=== PATIENT | female | born 1990 | race African-American/Black ===

== ENCOUNTER 2017-05-24 20:22 | Inpatient (IN) | payer BC, OTHER ==
[2017-05-24] MEDS: DEXTROSE 5%-LACTATED RINGERS 1,000 ML IV SCH ×2 (20:22→22:00)
[2017-05-24 20:48] LABS: BASOPHIL 1.2 % (0-2.0); EOSINOPHIL 0.2 % (0-4.5); MCH 32.1 pg (25.7-33.7); MCHC 34.4 g/dl (32.0-36.0); MEAN CELL VOLUME 93.5 fl (80-96); MEAN PLT VOLUME 8.7 fl (7.5-11.1); NEUTROPHILS 78.5 % (42.8-82.8); PLATELET COUNT 183 K/MM3 (134-434); RDW 13.6 % (11.6-15.6); WHITE BLOOD COUNT 8.6 K/mm3 (4.0-10.0)
[2017-05-24 20:59] VITALS: BMI 23.8
[2017-05-24 21:06] LABS: INR 0.97 (0.82-1.09); PROTHROMBIN TIME (PATIENT) 10.7 SEC (9.98-11.88)
[2017-05-24 21:14] LABS: ANION GAP 7 (8-16); BILIRUBIN,TOTAL 0.4 mg/dL (0.2-1.0); CALCIUM 8.7 mg/dL (8.5-10.1); CO2 26 mmol/L (21-32); CREATININE 0.8 mg/dL (0.55-1.02); GLUCOSE,RANDOM 122 mg/dL (74-106); SGOT/AST 28 U/L (15-37); SGPT/ALT 21 U/L (12-78); TOT PROT 6.3 g/dl (6.4-8.2)
[2017-05-24 21:15] LABS: ALK PHOS 120 U/L (45-117)
[2017-05-24 21:37] LABS: ACTIVATED PTT 26.8 SECONDS (26.9-34.4)
[2017-05-24] MEDS: OXYTOCIN 15 UNITS/ LR 250 ML 250 ML IV SCH (22:36)
--- NOTE | 2017-05-24 23:42 | HP ---
Past Medical History - Admission Chief Complaint: 30 y/o female presented to the [facility] c.o premature rupture of membtaes,dhr offers no other complaints History of Present Illness: her antipartum coutse has been unremakable,] she was tested negatively for GBS she is allergic t to penicillin History Source: Patient - Past Medical History DENTAL SERVICE CHIEF: No: Alzheimer's, CVA, Dementia, Migraine, Multiple Sclerosis, Peripheral Neuropathy, Parkinson's, Seizure, Syncope, TIA, Vertigo, Other Cardiovascular: No: AFIB, Aneurysm, Aortic Insufficiency, Aortic Stenosis, CAD, CHF, Deep Vein Thrombosis, HTN, Hyperlipdemia, TN, Mitral Insufficiency, Mitral Stenosis, Murmur, Pulmonary Hypertension, Other Pulmonary: Yes: Asthma. No: Bronchitis, Cancer, COPD, O2 Dependent, Pneumonia, Previously Intubated, Pulmonary Embolus, Pulmonary Fibrosis, Sleep Apnea, Other Gastrointestinal: No: Ascites, Cancer, Constipation, Crohn's Disease, Diverticulitis, Diverticulosis, Esophageal Varices, Gastritis, GERD, GI Bleed, Hemorrhoids, Hiatal Hernia, Inflamatory Bowel Disease, Irritable Bowel Disease, Pancreatitis, Peptic Ulcer Disease, Ulcerative Colitis, Other Hepatobiliary: Yes: Cirrhosis, Cholelithiasis, Cholecystitis, Choledocholithiasis, Hepatitis A, Hepatitis B, Hepatitis C, Other Reproductive: No: Ectopic , Endometriosis, Fibroids, PID, Polycystic Ovary Syndrome, Postmenopausal, Other ...: 3 ...Para: 1 ...Term: 1 ...: 0 ...Spon : 1 ...Induced : 0 ...Multiple Gestation: 0 ...LMP: 08/24/16 ... Weeks Gestation by Dates: 39.0 ...EDC by Dates: 05/31/17 Heme/Onc: Yes: Anemia Infectious Disease: No: AIDS, C-Diff, Herpes Zoster, HIV, MRSA, STD's, Tuberculosis, VREF, Other Psych: No: Addictions, Anxiety, Bipolar, Depression, Panic, Psychosis, Schizophrenia, Other Musculoskeletal: No: Bursitis, Chronic low back pain, Hemiparesis, Hemiplegia, Osteoarthritis, Paraplegia, Other Rheumatology: No: Fibromyalgia, Gout, Lupus, Rheumatoid Arthritis, Sarcoidosis, Vasculitis, Other ENT: No: Allergic Rhinitis, Sinusitis, Other Endocrine: Yes: Diabetes Mellitus. No: Mather's Disease, Leighton's Disease, Diabetes Insipidus, Hyperparathyroidism, Hyperthyroidism, Hypothyroidism, Osteopenia, SIADH, Other Dermatology: No: Basal Cell, Cellulitis, Eczema, Melanoma, Psoriasis, Squamous Cell, Other - Past Surgical History Past Surgical History: Yes: None Hx Myomectomy: No Hx Transabdominal Cerclage: No - Smoking History Smoking history: Never smoked Have you smoked in the past 12 months: No - Alcohol/Substance Use Hx Alcohol Use: No History of Substance Use: reports: None Home Medications - Allergies Allergies/Adverse Reactions: Allergies Allergy/AdvReac Type Severity Reaction Status Date / Time Penicillins Allergy Severe Hives Verified 05/24/17 20:26 - Home Medications Home Medications: Ambulatory Orders Vit/Iron Fumarate/FA [ Tablet] 1 tablet PO DAILY 05/24/17 Family Disease History - Family Disease History Family History: Unremarkable Physical Exam - Maternity Vital Signs: Vital Signs Temperature 99.2 F 05/24/17 23:00 Pulse Rate 84 05/24/17 23:00 Respiratory Rate 18 05/24/17 23:00 Blood Pressure 120/70 05/24/17 23:00 O2 Sat by Pulse Oximetry (%) Eyes: Yes: WNL Cardiovascular: Yes: WNL Breast(s): Yes: WNL - Abdominal Exam/OB Fundal Height: 39 Accelerations: None - Vaginal Exam/OB Vaginal Bleediing: No Speculum Exam: Yes Dilatation (cm): 2 Amniotic Fluid: Yes: Clear Meconium: Moderate Presentation: Vertex/Position Station: -1 - Physical Exam Musculoskeletal: Yes: WNL Extremities: Yes: WNL, Delayed Capillary Refill Edema: No Integumentary: Yes: WNL Deep Tendon Reflex Grade: Normal +2 ...Motor Strength: WNL Psychiatric: Yes: Oriented - Labs Lab Results: CBC, BMP 05/24/17 20:35 05/24/17 20:35 Assessment/Plan iup ay yerm with ptrmayure ruptur of membranes amiyto labor and delivery pain managrmrnt as requested by the patient continuos maternal monitoring
[2017-05-25] MEDS ORDERED: PROMETHAZINE HCL 25 MG/1 ML VIAL IVPUSH ONE (01:35)
[2017-05-25] MEDS ORDERED: BUTORPHANOL TARTRATE 1 MG/ML VIAL IVPUSH ONE (01:35)
[2017-05-25] MEDS ORDERED: CITRIC ACID/SODIUM CITRATE 30 ML UNIT-DOSE CUP PO ONE (04:55)
[2017-05-25] MEDS: ELECTROLYTE-148 SOLN 500 ML IV ONE ×2 (05:00→10:37)
[2017-05-25] MEDS ORDERED: ELECTROLYTE-148 SOLN 1,000 ML IV SCH (05:25)
--- NOTE | 2017-05-25 05:29 | PN ---
Progress Note, Labor Vaginal Exam #2 Labor Exam Date: 05/25/17 Labor Exam Time: 03:00 Heart Rate (range): 140-135 bpm with variables Dilatation: fully Effacement (%): 100% Amniotic Membrane Status: Ruptured Presentation: Face Station: +1
[2017-05-25] MEDS ORDERED: METHYLERGONOVINE MALEATE 0.2 MG/1 ML AMP IM PRN (07:13)
[2017-05-25] MEDS ORDERED: ONDANSETRON 4 MG/2 ML VIAL IVPB PRN (07:20)
[2017-05-25] MEDS ORDERED: IBUPROFEN 600 MG TABLET (FP) PO PRN (07:20)
[2017-05-25] MEDS: OXYTOCIN 20 UNITS in 0.9% NS 1,000 ML IV SCH ×2 (07:45→16:00)
[2017-05-25] MEDS ORDERED: IBUPROFEN 800 MG/8 ML IJ IVPB PRN (08:23)
--- NOTE | 2017-05-25 13:50 | PN ---
Progress Note (short form) - Note Progress Note: POD #1 - s/p under spinal anesthesia with duramorph. Pt. doing well, sitting up comfortably in bed. No complaints. Good pain control. No apparent anesthetic complications noted. Continue current care.
[2017-05-25] MEDS: IBUPROFEN 600 MG TABLET (FP) PO PRN ×2 (17:26→21:41)
[2017-05-25] MEDS: SIMETHICONE 80 MG TAB.CHEW (FP) PO PRN ×2 (17:28→21:40)
[2017-05-25] MEDS: ACETAMINOPHEN 325 MG TABLET (FP) PO PRN ×2 (17:28→21:40)
[2017-05-25] MEDS: OXYTOCIN 15 UNITS/ LR 250 ML 250 ML IV SCH (23:20)
[2017-05-26] MEDS: SIMETHICONE 80 MG TAB.CHEW (FP) PO PRN ×5 (01:49→20:17)
[2017-05-26] MEDS: ACETAMINOPHEN 325 MG TABLET (FP) PO PRN ×5 (01:50→20:19)
[2017-05-26] MEDS: IBUPROFEN 600 MG TABLET (FP) PO PRN ×5 (01:50→20:18)
[2017-05-26] MEDS ORDERED: BISACODYL 10 MG SUPP.RECT RC PRN (07:24)
[2017-05-26 08:45] LABS: BASOPHIL 0.2 % (0-2.0); EOSINOPHIL 0.6 % (0-4.5); MCH 32.7 pg (25.7-33.7); MCHC 34.6 g/dl (32.0-36.0); MEAN CELL VOLUME 94.6 fl (80-96); MEAN PLT VOLUME 8.1 fl (7.5-11.1); NEUTROPHILS 81.2 % (42.8-82.8); PLATELET COUNT 141 K/MM3 (134-434); RDW 13.6 % (11.6-15.6); WHITE BLOOD COUNT 9.5 K/mm3 (4.0-10.0)
--- NOTE | 2017-05-26 09:35 | PN ---
Post Progress Note - Subjective Subjective: Pt seen/evaluated and doing well. Pain controlled. Tolerating diet. Ambulating without dizziness. No flatus yet. +Void. Denies CP/SOB/F/C/DAVILA. Type of Delivery: Primary C/S Vital Signs: Vital Signs Temperature 98 F 05/26/17 08:50 Pulse Rate 75 05/26/17 08:50 Respiratory Rate 20 05/26/17 08:50 Blood Pressure 105/58 05/26/17 08:50 O2 Sat by Pulse Oximetry (%) 100 05/25/17 08:00 Uterus: Yes: Fundus Firm, Fundus below umbilicus Incision: Yes: Ifeanyi intact Abdomen/GI: Yes: Abdomen soft, Tolerating PO. No: Tender Lochia: Yes: Rubra Lochia, amount: Small Extremities: Yes: Calves non-tender. No: Edema Perineum: Yes: Intact Activity: Ambulating - Labs Labs: CBC WBC 9.5 K/mm3 (4.0-10.0) 05/26/17 08:00 RBC 2.55 M/mm3 (3.60-5.2) L D 05/26/17 08:00 Hgb 8.3 GM/dL (10.7-15.3) L D 05/26/17 08:00 Hct 24.1 % (32.4-45.2) L D 05/26/17 08:00 MCV 94.6 fl (80-96) 05/26/17 08:00 MCH 32.7 pg (25.7-33.7) 05/26/17 08:00 MCHC 34.6 g/dl (32.0-36.0) 05/26/17 08:00 RDW 13.6 % (11.6-15.6) 05/26/17 08:00 Plt Count 141 K/MM3 (134-434) D 05/26/17 08:00 MPV 8.1 fl (7.5-11.1) 05/26/17 08:00 Neutrophils % 81.2 % (42.8-82.8) 05/26/17 08:00 Lymphocytes % 12.2 % (8-40) 05/26/17 08:00 Monocytes % 5.8 % (3.8-10.2) 05/26/17 08:00 Eosinophils % 0.6 % (0-4.5) D 05/26/17 08:00 Basophils % 0.2 % (0-2.0) 05/26/17 08:00 Problem List - Problems (1) delivery delivered Code(s): O82 - ENCOUNTER FOR DELIVERY WITHOUT INDICATION (2) Anemia Code(s): D64.9 - ANEMIA, UNSPECIFIED Assessment/Plan 27 y/o POD#1 s/p primary delivery for arrest of descent and face presentation - AFVSS - Hgb 8.3 post op, pt asymptomatic, will continue vitamins and PO Iron - encourage ambulation - PO pain meds - advance diet as tolerated
[2017-05-26] MEDS: FERROUS SO4 325 MG TABLET (FP) PO SCH ×2 (09:47→21:53)
[2017-05-26] MEDS: PRENATAL VITAMINS W/ FOLIC ACID TABLET (FP) PO SCH (09:47)
[2017-05-26] MEDS ORDERED: DIPHTH,PERTUSS(ACELL),TET 0.5 ML DISP.SYRIN IM ONE (11:00)
[2017-05-27] MEDS: SIMETHICONE 80 MG TAB.CHEW (FP) PO PRN ×5 (02:10→21:41)
[2017-05-27] MEDS: IBUPROFEN 600 MG TABLET (FP) PO PRN ×5 (02:11→21:40)
[2017-05-27] MEDS: ACETAMINOPHEN 325 MG TABLET (FP) PO PRN ×5 (02:12→21:41)
--- NOTE | 2017-05-27 08:54 | PN ---
Post Progress Note - Subjective Subjective: 27 yo Para 1, status post primary , seen and evaluated. Doing well, no complaints. Post Day: 2 Type of Delivery: Primary C/S Vital Signs: Vital Signs Temperature 98 F 05/27/17 08:13 Pulse Rate 83 05/27/17 08:13 Respiratory Rate 20 05/27/17 08:13 Blood Pressure 114/65 05/27/17 08:13 O2 Sat by Pulse Oximetry (%) 100 05/25/17 08:00 Breast Exam: Yes: Soft Uterus: Yes: Fundus Firm Incision: Yes: Dressing dry and intact Abdomen/GI: Yes: Abdomen soft Lochia: Yes: Rubra Lochia, amount: Small Extremities: Yes: Calves non-tender Perineum: Yes: Intact Activity: Other (She's lying in bed) - Labs Labs: CBC WBC 9.5 K/mm3 (4.0-10.0) 05/26/17 08:00 RBC 2.55 M/mm3 (3.60-5.2) L D 05/26/17 08:00 Hgb 8.3 GM/dL (10.7-15.3) L D 05/26/17 08:00 Hct 24.1 % (32.4-45.2) L D 05/26/17 08:00 MCV 94.6 fl (80-96) 05/26/17 08:00 MCH 32.7 pg (25.7-33.7) 05/26/17 08:00 MCHC 34.6 g/dl (32.0-36.0) 05/26/17 08:00 RDW 13.6 % (11.6-15.6) 05/26/17 08:00 Plt Count 141 K/MM3 (134-434) D 05/26/17 08:00 MPV 8.1 fl (7.5-11.1) 05/26/17 08:00 Neutrophils % 81.2 % (42.8-82.8) 05/26/17 08:00 Lymphocytes % 12.2 % (8-40) 05/26/17 08:00 Monocytes % 5.8 % (3.8-10.2) 05/26/17 08:00 Eosinophils % 0.6 % (0-4.5) D 05/26/17 08:00 Basophils % 0.2 % (0-2.0) 05/26/17 08:00 Assessment/Plan Status post primary Stable Ambulation Analgesia as needed Continue routine care
[2017-05-27] MEDS: FERROUS SO4 325 MG TABLET (FP) PO SCH ×2 (09:23→21:40)
[2017-05-27] MEDS: PRENATAL VITAMINS W/ FOLIC ACID TABLET (FP) PO SCH (09:24)
[2017-05-28] MEDS: ACETAMINOPHEN 325 MG TABLET (FP) PO PRN ×2 (02:55→08:32)
[2017-05-28] MEDS: SIMETHICONE 80 MG TAB.CHEW (FP) PO PRN ×2 (02:55→08:34)
[2017-05-28] MEDS: IBUPROFEN 600 MG TABLET (FP) PO PRN ×2 (02:56→08:31)
--- NOTE | 2017-05-28 06:14 | PN ---
Progress Note (SOAP) - Subjective Chief Complaint: Pt doing well - Current Medications Current Medications: Active Medications Acetaminophen (Tylenol -) 650 mg PO Q4H PRN PRN Reason: FEVER OR PAIN Last Admin: 05/28/17 02:55 Dose: 650 mg Bisacodyl (Dulcolax Suppository -) 10 mg RC PRN PRN PRN Reason: CONSTIPATION Diphenhydramine HCl (Benadryl Injection -) 25 mg IVPUSH Q4H PRN PRN Reason: Pruritis Ferrous Sulfate (Feosol -) 325 mg PO BID MOY Last Admin: 05/27/17 21:40 Dose: 325 mg Ibuprofen (Motrin -) 600 mg PO Q4H PRN PRN Reason: PAIN Last Admin: 05/28/17 02:56 Dose: 600 mg Ibuprofen (Caldolor Injection -) 800 mg IVPB Q6H PRN PRN Reason: PAIN Last Admin: 05/25/17 08:00 Dose: 800 mg Methylergonovine Maleate (Methergine Injection -) 0.2 mg IM Q4H PRN PRN Reason: Excessive Bleeding (L&D) Multivit/Folic Acid/Iron ( Vitamins (Sjr) -) 1 tab PO DAILY [facility] Last Admin: 05/27/17 09:24 Dose: Not Given Simethicone (Mylicon -) 80 mg PO Q4H PRN PRN Reason: GAS Last Admin: 05/28/17 02:55 Dose: 80 mg - Objective Vital Signs: Vital Signs Temperature 98.3 F 05/27/17 22:00 Pulse Rate 71 05/27/17 22:00 Respiratory Rate 20 05/27/17 22:00 Blood Pressure 119/61 05/27/17 22:00 O2 Sat by Pulse Oximetry (%) 100 05/25/17 08:00 Constitutional: Yes: Well Nourished, No Distress Gastrointestinal: Yes: WNL, Normal Bowel Sounds Musculoskeletal: Yes: WNL Extremities: Yes: WNL Edema: No Wound/Incision: Yes: Clean/Dry, Well Approximated, Steri Strips Neurological: Yes: WNL, Alert, Oriented Labs Lab Results: CBC, BMP 05/26/17 08:00 05/24/17 20:35 Assessment/Plan POD 3 SP CS stable Plan DC home if stable
[2017-05-28 08:28] LABS: BASOPHIL 0.3 % (0-2.0); EOSINOPHIL 1.8 % (0-4.5); MCH 32.5 pg (25.7-33.7); MCHC 34.3 g/dl (32.0-36.0); MEAN CELL VOLUME 94.8 fl (80-96); MEAN PLT VOLUME 8.2 fl (7.5-11.1); NEUTROPHILS 70.8 % (42.8-82.8); PLATELET COUNT 193 K/MM3 (134-434); RDW 13.4 % (11.6-15.6); WHITE BLOOD COUNT 7.6 K/mm3 (4.0-10.0)
[2017-05-28 09:19] VITALS: BP 117/75; PULSE 84; TEMP 98.9
[2017-05-28] MEDS: FERROUS SO4 325 MG TABLET (FP) PO SCH (09:48)
[2017-05-28] MEDS: PRENATAL VITAMINS W/ FOLIC ACID TABLET (FP) PO SCH (09:48)
--- NOTE | 2017-05-30 15:31 | PATH ---
Surgical Pathology Report Patient Name: KAYLEIGH LAUREANO Med. Rec. #: [id number] /Age/Gender: 1990 (Age: 27) / F Account: [id number] Location: [facility] OBS/DISTRICT LEADER Taken: 05/25/2017 Received: 05/26/2017 Reported: 05/30/2017 Physicians: Daisha Oneill Specimen(s) Received PLACENTA Clinical History 2014, SAB 2013 Left breast cyst 2003, D&C 2014 post vaginal delivery for hemorrhage Failure to progress, OP, cord x1 neck, cord x1 body Final Diagnosis PLACENTA, DELIVERY: FOCALLY DISRUPTED THIRD TRIMESTER PLACENTA WITH SUBCHORIONIC FIBRIN DEPOSITION, THREE VESSEL UMBILICAL CORD AND UNREMARKABLE PLACENTAL MEMBRANES. Electronically Signed Rm Marin M.D. Gross Description The specimen is received fresh labeled placenta and is a 401 gram, 18.5 x 13.0 x 2.5 cm. placenta with attached membranes and umbilical cord. The attached membranes are rodriguez, translucent with focal opacities and insert marginally. The umbilical cord measures 25 cm. in length and averages 1.0 cm. in diameter. The cord inserts centrally. No true knots or strictures are identified. Cut surface of the umbilical cord reveals 3 vessels. The surface is le blue with abundant fibrin deposition and appropriate caliber vessels. The maternal surface is red-brown with focal defects. Sectioning reveals red-brown, spongy parenchyma. No lesions are identified. Principal Statistical Programmer sections are submitted in three cassettes as follows: 1- membrane roll and umbilical cord; 2-3- full thickness sections of placenta. 05/28/2017 [facility]05/28/2017
--- NOTE | 2017-06-03 11:00 | OP ---
DATE OF OPERATION: 05/24/2017 SURGEON OF RECORD: Tashi Tyson MD PREOPERATIVE DIAGNOSES: Intrauterine at term, premature rupture of membranes, failure to descend, occiput posterior presentation. POSTOPERATIVE DIAGNOSES: Intrauterine at term, premature rupture of membranes, failure to descend, occiput posterior presentation. PROCEDURE: Primary low-segment transverse section. ESTIMATED BLOOD LOSS: Approximately 400 mL to 500 mL. ANESTHESIA GIVEN: Epidural. OUTCOME: Living , scores 9, 9 and 10. CONDITION OF PATIENT POSTOPERATIVELY: Stable to recovery room. DESCRIPTION OF PROCEDURE: The patient was prepped and draped in the usual sterile fashion after an adequate anesthesia was obtained via epidural. Using the first knife, an incision was made in the lower abdomen. That incision was taken down to the fascia using cautery. The fascia was then incised in the midline, and that incision was extended bilaterally in an elliptical fashion. The fascia was then from the rectus muscle. The muscle was in the midline, and the peritoneal layer was identified and was grasped with 2 Kellys, and using the Metzenbaum scissors, that incision was extended in an upward and downward fashion, exposing the lower uterine segment. A bladder flap was created by the bladder peritoneum from the lower uterine segment, and that was retracted with a Melany retractor. Using the second knife, an incision was made in the lower uterine segment, and that incision was extended in a bilateral fashion using bandage scissors. At that point, an was delivered from the cephalic posterior presentation, and once the head was delivered, the child cried spontaneously. The nose and oropharynx were suctioned with bulb syringe, and placing gentle pressure on the abdomen, the shoulders were delivered, followed by the . Then, cord blood was collected for blood gas. The 's umbilical cord, prior to the collection of the cord done, a nuchal cord and body cord were observed, as well as cord around the ankle of the . The infant was freed up of all the cord entanglement and was given to the technical education teacher present at the delivery. A segment of the cord was sent to Pathology for gas, and cord blood was collected. Then, the placenta was manually removed from the uterine cavity. The cavity was inspected, was freed of all blood clots and membranes. Then, the uterine incision was closed in 2 layers using Biosyn sutures. The second layer was an imbricated stitch. The bladder flap was reconstituted using Biosyn sutures. Good hemostasis was ensured. The paracolic gutters were evaluated, freed of all blood clots and membranes, and the ovaries appeared to be normal. At that point, using 2 Kellys, the peritoneal layer was grasped and was closed in a running fashion using 0 Biosyn. The muscles were approximated in the midline with interrupted stitches of 0 Vicryl. Then, the fascia was closed in a running fashion using 0 Vicryl. The subcutaneous tissue was approximated, and the skin was closed with patricia. The patient's incision was then dressed. She sustained the procedure well, and she was taken to postanesthesia recovery room in stable condition. TASHI TYSON M.D. [id number]
== END 2017-05-28 12:10 | disposition home or self-care (01) | DRG 766 ==
LOC: JLDR 20:22 → J3W 05-25 08:48
PROVIDERS: ADMIT Obstetrics & Gynecology; ATTEND Obstetrics & Gynecology
PROC: 10D00Z1 Extraction of Products of Conception, Low, Open Approach (ICD-10-PCS; principal; 2017-05-25)
DX: O62.1 Secondary uterine inertia (principal); O99.02 Anemia complicating childbirth; O32.3XX0 Maternal care for face, brow and chin presentation, not applicable or unspecified; Z3A.39 39 weeks gestation of pregnancy; O69.81X0 Labor and delivery complicated by cord around neck, without compression, not applicable or unspecified; Z37.0 Single live birth
CPT/HCPCS: 36415; 80053; 85025; 85610; 85730; 86593; 86762; 86850; 86900; 86901; 87340; 88307-TC; 90715